=== PATIENT | female | born 1985 | race Caucasian/White ===

== ENCOUNTER 2018-06-15 12:55 | Emergency (ER) | payer OTHER ==
[~2018-06-15] VITALS: Ht 165.1 cm; Wt 84.1 kg
[2018-06-15 13:00] VITALS: BP 125/82
[2018-06-15] MEDS ORDERED: ORLI120C22 PO (13:01)
[2018-06-15] MEDS ORDERED: LIDOCAINE 1% 10 ML VIAL INJ ONE (13:30)
[2018-06-15] MEDS ORDERED: ACETAMINOPHEN 500 MG TABLET PO ONE (13:30)
[2018-06-15] MEDS ORDERED: BACITRACIN 0.9 GM PACKET OINTMENT TP ONE (14:00)
== END 2018-06-15 14:04 | disposition home or self-care (01) ==
LOC: EMS 12:56
DX: S61.211A Laceration without foreign body of left index finger without damage to nail, initial encounter (principal); S61.213A Laceration without foreign body of left middle finger without damage to nail, initial encounter; E03.9 Hypothyroidism, unspecified; Z88.8 Allergy status to other drugs, medicaments and biological substances; Z90.49 Acquired absence of other specified parts of digestive tract; W26.0XXA Contact with knife, initial encounter; Y93.89 Activity, other specified; Y92.89 Other specified places as the place of occurrence of the external cause; Y99.8 Other external cause status
CPT/HCPCS: 12001; 99283; J3490